=== PATIENT | female | born 1990 | race Caucasian/White ===

== ENCOUNTER 2016-11-30 14:32 | Emergency (ER) | payer MEDICARE, MEDICAID ==
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
--- NOTE | 2016-12-02 16:03 | RADIOLOGY REPORT ---
EXAM: KNEE, RIGHT 3 VIEWS HISTORY: INJURY. TECHNIQUE: Three views of the right knee were provided without comparison studies. FINDINGS: There is no radiographic evidence of a fracture or dislocation of the right knee. No significant soft tissue abnormalities are visualized. No significant suprapatellar bursal effusion is noted. IMPRESSION: NO RADIOGRAPHIC EVIDENCE OF AN ACUTE PROCESS INVOLVING THE RIGHT KNEE. JOB NUMBER: [id number] MTDD
== END 2016-11-30 16:31 | disposition home or self-care (01) ==
LOC: ER 14:32
DX: S86.911A Strain of unspecified muscle(s) and tendon(s) at lower leg level, right leg, initial encounter (principal); X50.0XXA Overexertion from strenuous movement or load, initial encounter
CPT/HCPCS: 99283